=== PATIENT | male | born 1990 | race American Indian/Alaskan Native ===

== ENCOUNTER 2017-08-26 06:59 | Emergency (ER) | payer SELFPAY ==
[2017-08-26 08:00] LABS: Bilirubin,Urine NEG (Negative); Blood,Urine NEG (Negative); Color,Urine Yellow (Yellow); Mucus,Urine 2+ /HPF; Protein,Urine <15 mg/dL mg/dL (Negative); Urobilinogen,Urine < 2.0 mg/dL (<2.0)
--- NOTE | 2017-08-26 08:08 | Emergency Department Report ---
ED N/V/D HPI - General Chief complaint: Nausea/Vomiting/Diarrhea Stated complaint: ABD , N/V Time Seen by Provider: 08/26/17 07:51 Source: patient, family Mode of arrival: Ambulatory Limitations: No Limitations - History of Present Illness Initial comments: 26-year-old male past medical history none presents with complaint of nausea vomiting and abdominal pain since yesterday. Patient states that he may have gotten food poisoning by eating fast food yesterday. Patient is awake alert and oriented. Appears to be in acute distress. States that his stomach is hurting him and he feels extremely nauseous and has vomited more than 8-10 times in the last 24 hours. States that another family member who ate fast food at [employer] with him yesterday has had similar symptoms. Denies fever but does complain of chills. Denies diarrhea. Denies any recent antibiotic use or recent travel. Patient is accompanied by mother at bedside. Denies chest pain or shortness of breath. Is ambulatory without assistance. Denies dysuria or increased urinary frequency. MD complaint: nausea, vomiting, abdominal pain Onset/Timin -: days(s) Description of Vomiting: food contents, bilious Description of Diarrhea: water Location: periumbillcal, epigastric Severity: severe Pain Scale: 7 Quality: aching, sharp Consistency: intermittent Context: possible food poisoning Associated Symptoms: loss of appetite, malaise, nausea/vomiting - Related Data Previous Rx's Medication Instructions Recorded Last Taken Type Ondansetron [Zofran Odt] 4 mg PO Q8H PRN #10 tab.rapdis 08/26/17 Unknown Rx Allergies Allergy/AdvReac Type Severity Reaction Status Date / Time No Known Allergies Allergy Unverified 08/26/17 07:30 ED Review of Systems ROS: Stated complaint: ABD , N/V Other details as noted in HPI Constitutional: denies: chills, fever Eyes: denies: eye pain, eye discharge, vision change ENT: denies: ear pain, throat pain Respiratory: denies: cough, shortness of breath, wheezing Cardiovascular: denies: chest pain, palpitations Endocrine: no symptoms reported Gastrointestinal: as per HPI (since yesterday after eating fast food as per patient and his mother at bedside), abdominal pain, nausea, vomiting. denies: diarrhea Genitourinary: denies: urgency, dysuria Musculoskeletal: denies: back pain, joint swelling, arthralgia Skin: denies: rash, lesions Neurological: denies: headache, weakness, paresthesias Psychiatric: denies: anxiety, depression Hematological/Lymphatic: denies: easy bleeding, easy bruising ED Past Medical Hx - Past Medical History Previous Medical History?: No - Surgical History Past Surgical History?: No - Social History Smoking Status: Current Every Day Smoker Substance Use Type: Marijuana - Medications Home Medications: Home Medications Medication Instructions Recorded Confirmed Last Taken Type Ondansetron [Zofran Odt] 4 mg PO Q8H PRN #10 tab.rapdis 08/26/17 Unknown Rx ED Physical Exam - General Limitations: No Limitations General appearance: alert, in no apparent distress - Head Head exam: Present: atraumatic, normocephalic - Eye Eye exam: Present: normal appearance, PERRL, EOMI - ENT ENT exam: Present: mucous membranes moist - Neck Neck exam: Present: normal inspection - Respiratory Respiratory exam: Present: normal lung sounds bilaterally. Absent: respiratory distress - Cardiovascular Cardiovascular Exam: Present: regular rate, normal rhythm. Absent: systolic murmur, diastolic murmur, rubs, gallop - GI/Abdominal GI/Abdominal exam: Present: tenderness (patient has epigastric pain on palpation ), guarding (patient is guarding his abdomen on deep palpation), normal bowel sounds - Rectal Rectal exam: Present: deferred - Extremities Exam Extremities exam: Present: normal inspection - Back Exam Back exam: Present: normal inspection - Neurological Exam Neurological exam: Present: alert, oriented X3, CN II-XII intact, normal gait - Psychiatric Psychiatric exam: Present: normal affect, normal mood - Skin Skin exam: Present: warm, dry, intact, normal color. Absent: rash ED Course Vital Signs 08/26/17 08/26/17 08/26/17 07:30 09:16 10:26 Temperature 99.2 F Pulse Rate 82 84 Respiratory 18 20 18 Rate Blood Pressure 113/71 Blood Pressure 130/72 [Left] O2 Sat by Pulse 96 100 Oximetry ED Medical Decision Making - Lab Data Result diagrams: 08/26/17 08:28 08/26/17 08:28 - Medical Decision Making A/P: Acute abdominal pain, nausea and vomiting; differentials include acute gastroenteritis versus food poisoning versus pancreatitis as appendicitis 1-patient initially presented with severe abdominal pain and significant nausea. Patient given antiemetics analgesics and IV fluid resuscitation 2-upon reassessment patient's pain is significantly diminished but is still nauseous and vomiting and cannot tolerate anything by mouth. Labs are unremarkable but patient is still clinically extremely nauseous. States he feels somewhat better after initial treatment. Patient's abdomen is plow and boring machine tender to palpation. I advised him that is clinically appropriate to diminish his nausea to the point where he can tolerate by mouth fluids and has little to no abdominal pain before I can safely discharge him as I must consider other etiologies of abdominal pain and acute nausea and vomiting. Patient stated that he had to leave due to personal reasons. Patient's abdomen was still slightly tender at this time. I advised him to stay for further management and CT of his abdomen pelvis but patient declined and signed out AGAINST MEDICAL ADVICE. I advised him to return at his earliest convenience for continued abdominal pain nausea vomiting and inability to tolerate any by mouth fluid or food. Patient could not tolerate any fluid by mouth before discharge. This conversation was witnessed by medical staff and utility person Mr. Luis Hall who witnessed this conversation. Patient's mother was also present when I have this conversation with him. 3 Addenduminitially I accidentally documented a laceration repair in this patient's chart. Patient was not in ED with complaint of laceration, he presented for acute nausea vomiting and abdominal pain. Critical care attestation.: If time is entered above; I have spent that time in minutes in the direct care of this critically ill patient, excluding procedure time. ED Disposition Clinical Impression: Nausea and vomiting in adult, Left against medical advice Abdominal pain Qualifiers: Abdominal location: generalized Qualified Code(s): R10.84 - Generalized abdominal pain Disposition: LEFT AGAINST MED ADVICE Is pt being admited?: No Does the pt Need Aspirin: No Condition: Undetermined Instructions: Abdominal Pain (ED), Against Medical Advice (ED) Prescriptions: Ondansetron [Zofran Odt] 4 mg PO Q8H PRN #10 tab.rapdis PRN Reason: Nausea Referrals: [facility] [Provider Group] - 3-5 Days Forms: AMA Form, Accompanied Note Time of Disposition: 11:11
[2017-08-26] MEDS ORDERED: NACL 0.9% 1000 ML 1,000 ML IV ONE (08:19)
[2017-08-26] MEDS ORDERED: ZOFRAN IV ONE (08:19)
[2017-08-26] MEDS ORDERED: MORPHINE IV ONE (08:20)
[2017-08-26 08:42] LABS: Hematocrit 45.6 % (35.5-45.6); Hemoglobin 15.7 gm/dl (11.8-15.2); Mean Corpuscular HGB Conc 35 % (32-34); Mean Corpuscular Hemoglobin 33 pg (28-32); Mean Corpuscular Volume 94 fl (84-94); Platelet Count 202 K/mm3 (140-440); Red Blood Count 4.83 M/mm3 (3.65-5.03); Red Cell Distribution Width 13.2 % (13.2-15.2)
[2017-08-26 08:57] LABS: Alanine Aminotransferase 12 units/L (7-56); Albumin 4.3 g/dL (3.9-5); BUN/Creatinine Ratio 13; Blood Urea Nitrogen 10 mg/dL (9-20); Hemolysis Index 7; Lipase 16 units/L (13-60)
[2017-08-26 09:09] LABS: Bilirubin,Direct < 0.2 mg/dL (0-0.2)
[2017-08-26] MEDS ORDERED: PEPCID IV ONE (09:26)
[2017-08-26] MEDS ORDERED: D5NS 1,000 ML IV SCH (10:00)
[2017-08-26 10:27] VITALS: BP 130/72
[2017-08-26 12:58] LABS: Basophils % (Manual) 0 % (0.0-1.8); Eosinophils % (Manual) 0 % (0.0-4.3); Platelet Estimate Cons; RBC Morphology Normal; Total Cells Counted 100
== END 2017-08-26 11:20 | disposition left against medical advice (07) ==
LOC: ED 06:59
DX: R11.2 Nausea with vomiting, unspecified (principal); R10.9 Unspecified abdominal pain; F17.200 Nicotine dependence, unspecified, uncomplicated; F12.10 Cannabis abuse, uncomplicated
CPT/HCPCS: 36415; 80048; 80074; 81001; 82140; 82150; 83690; 85007; 85025; 96361; 96374; 96375; 99283; J2270; J2405; J7030; J7042

== ENCOUNTER 2020-06-17 07:43 | Emergency (ER) | payer OTHER ==
[2020-06-17 07:49] VITALS: BP 122/75
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
== END 2020-06-17 09:06 | disposition home or self-care (01) ==
LOC: ED 07:43
DX: S29.012A Strain of muscle and tendon of back wall of thorax, initial encounter (principal); S16.1XXA Strain of muscle, fascia and tendon at neck level, initial encounter; F17.200 Nicotine dependence, unspecified, uncomplicated; Z79.899 Other long term (current) drug therapy; V49.59XA Passenger injured in collision with other motor vehicles in traffic accident, initial encounter; Y92.410 Unspecified street and highway as the place of occurrence of the external cause; Y93.89 Activity, other specified; Y99.8 Other external cause status
CPT/HCPCS: 72040; 72070

== ENCOUNTER 2020-09-24 14:44 | Emergency (ER) | payer OTHER ==
[2020-09-24 14:53] VITALS: BP 126/78
[2020-09-24] MEDS ORDERED: LIDOCAINE (1%) 10 MG/1 ML VIAL 20 ML MDV INFILTRATI ONE (18:08)
[2020-09-24] MEDS ORDERED: TETANUS,DIPH,PERTUSS(ACELL) VACCINE 0.5 ML SYRINGE IM ONE (18:08)
--- NOTE | 2020-09-24 18:25 | Emergency Department Report ---
ED General Adult HPI - General Chief complaint: Laceration/Recheck/Suture Stated complaint: RT HAND LAC/WRIST Time Seen by Provider: 09/24/20 18:03 Source: EMS Mode of arrival: Stretcher Limitations: No Limitations - History of Present Illness Initial comments: 30-year-old -[place] male patient presents with complaints of right hand laceration occurring today at work. Patient states as he was placing a box down, there was a sharp piece of metal hanging out that swiped against his hand and cut him. He denies any numbness/tingling, difficulty moving his hand, or blood thinner use. He rates his current pain as a 5/10 in severity. No decreased range of motion of the hand per patient. He is unsure of his last tetanus vaccination Severity scale (0 -10): 0 - Related Data Previous Rx's Medication Instructions Recorded Last Taken Type Ondansetron [Zofran Odt] 4 mg PO Q8H PRN #10 tab.rapdis 08/26/17 Unknown Rx Ibuprofen [Motrin] 600 mg PO Q8H PRN #30 tablet 06/17/20 Unknown Rx methOCARBAMOL [Robaxin TAB] 750 mg PO Q8H PRN #30 tablet 06/17/20 Unknown Rx Ibuprofen [Motrin 800 MG tab] 800 mg PO Q8HR PRN #20 tablet 09/24/20 Unknown Rx Mupirocin [Bactroban 2% OINT] 1 applic TP TID 7 Days #1 tube 09/24/20 Unknown Rx cephALEXin [Keflex] 500 mg PO Q12HR 7 Days #14 cap 09/24/20 Unknown Rx Allergies Allergy/AdvReac Type Severity Reaction Status Date / Time No Known Allergies Allergy Verified 06/17/20 07:44 ED Review of Systems ROS: Stated complaint: RT HAND LAC/WRIST Other details as noted in HPI ED Past Medical Hx - Past Medical History Previous Medical History?: No - Surgical History Past Surgical History?: No - Social History Smoking Status: Current Every Day Smoker Substance Use Type: Alcohol - Medications Home Medications: Home Medications Medication Instructions Recorded Confirmed Last Taken Type Ondansetron [Zofran Odt] 4 mg PO Q8H PRN #10 tab.rapdis 08/26/17 Unknown Rx Ibuprofen [Motrin] 600 mg PO Q8H PRN #30 tablet 06/17/20 Unknown Rx methOCARBAMOL [Robaxin TAB] 750 mg PO Q8H PRN #30 tablet 06/17/20 Unknown Rx Ibuprofen [Motrin 800 MG tab] 800 mg PO Q8HR PRN #20 tablet 09/24/20 Unknown Rx Mupirocin [Bactroban 2% OINT] 1 applic TP TID 7 Days #1 tube 09/24/20 Unknown Rx cephALEXin [Keflex] 500 mg PO Q12HR 7 Days #14 cap 09/24/20 Unknown Rx ED Physical Exam - General Limitations: No Limitations General appearance: alert, in no apparent distress - Head Head exam: Present: atraumatic, normocephalic - Eye Eye exam: Present: normal appearance - Respiratory Respiratory exam: Absent: respiratory distress - Cardiovascular Cardiovascular Exam: Present: regular rate ED Course Vital Signs 09/24/20 14:52 Temperature 98.0 F Pulse Rate 78 Respiratory 18 Rate Blood Pressure 126/78 [Right] O2 Sat by Pulse 99 Oximetry - Laceration /Wound Repair Hand Wound Length (cm): 5 Irrigated w/ Saline (ccs): 40 Betadine Prep?: Yes Anesthesia: 1% Lidocaine Volume Anesthetic (ccs): 6 Suture Size/Type: 4:0, proline Number of Sutures: 12 (Continuous) Sterile Dressing Applied?: Yes Progress: Minimal bleeding occurred. Patient tolerated procedure well without any immediate complications. He has normal range of motion and perfusion of the higuera d post procedure ED Medical Decision Making - Medical Decision Making 30-year-old -[place] male patient presents with complaints of right hand laceration occurring today at work. Patient states as he was placing a box down, there was a sharp piece of metal hanging out that swiped against his hand and cut him. He denies any numbness/tingling, difficulty moving his hand, or blood thinner use. He rates his current pain as a 5/10 in severity. No decreased range of motion of the hand per patient. He is unsure of his last tetanus vaccination Laceration repaired. Patient tolerated procedure well without any immediate complications. Discussed wound care and strict return precautions in detail with patient verbalizes understanding. He is well-appearing and stable for discharge home. Patient to return to ED in 10 days for suture removal. Critical care attestation.: If time is entered above; I have spent that time in minutes in the direct care of this critically ill patient, excluding procedure time. ED Disposition Clinical Impression: Laceration of right hand Disposition: DC-01 TO HOME OR SELFCARE Is pt being admited?: No Condition: Stable Instructions: Sutured Wound Care Additional Instructions: Please return to the emergency department in 10 days for suture removal. Prescriptions: Mupirocin [Bactroban 2% OINT] 1 applic TP TID 7 Days #1 tube cephALEXin [Keflex] 500 mg PO Q12HR 7 Days #14 cap Ibuprofen [Motrin 800 MG tab] 800 mg PO Q8HR PRN #20 tablet PRN Reason: pain
== END 2020-09-24 19:18 | disposition home or self-care (01) ==
LOC: ED 14:44
DX: S61.411A Laceration without foreign body of right hand, initial encounter (principal); F17.200 Nicotine dependence, unspecified, uncomplicated; W26.8XXA Contact with other sharp object(s), not elsewhere classified, initial encounter; Y93.89 Activity, other specified; Y92.89 Other specified places as the place of occurrence of the external cause; Y99.0 Civilian activity done for income or pay
CPT/HCPCS: 90471; 90715; 99283

== ENCOUNTER 2020-10-04 12:17 | Emergency (ER) | payer SELFPAY ==
--- NOTE | 2020-10-04 12:42 | Emergency Department Report ---
- General Chief complaint: Laceration/Recheck/Suture Stated complaint: SUTURE REMOVAL Time Seen by Provider: 10/04/20 12:28 Source: patient Mode of arrival: Ambulatory Limitations: No Limitations - History of Present Illness Initial comments: 30-year-old -[place] male presents to the emergency room to have sutures removed that was placed on 09/24/2020 on his right volar wrist. Patient states that he has noticed a little bit of drainage. Patient admits he did not take his antibiotics or use the antibiotic cream that the provider placed him on. Patient denies any fever or chills. - Related Data Previous Rx's Medication Instructions Recorded Last Taken Type Ondansetron [Zofran Odt] 4 mg PO Q8H PRN #10 tab.rapdis 08/26/17 Unknown Rx Ibuprofen [Motrin] 600 mg PO Q8H PRN #30 tablet 06/17/20 Unknown Rx methOCARBAMOL [Robaxin TAB] 750 mg PO Q8H PRN #30 tablet 06/17/20 Unknown Rx Ibuprofen [Motrin 800 MG tab] 800 mg PO Q8HR PRN #20 tablet 09/24/20 Unknown Rx Mupirocin [Bactroban 2% OINT] 1 applic TP TID 7 Days #1 tube 09/24/20 Unknown Rx cephALEXin [Keflex] 500 mg PO Q12HR 7 Days #14 cap 09/24/20 Unknown Rx Allergies Allergy/AdvReac Type Severity Reaction Status Date / Time No Known Allergies Allergy Verified 10/04/20 12:24 Abscess Boil HPI - HPI Chief Complaint: Laceration/Recheck/Suture Stated Complaint: SUTURE REMOVAL Time Seen by Provider: 10/04/20 12:28 Home Medications: Previous Rx's Medication Instructions Recorded Last Taken Type Ondansetron [Zofran Odt] 4 mg PO Q8H PRN #10 tab.rapdis 08/26/17 Unknown Rx Ibuprofen [Motrin] 600 mg PO Q8H PRN #30 tablet 06/17/20 Unknown Rx methOCARBAMOL [Robaxin TAB] 750 mg PO Q8H PRN #30 tablet 06/17/20 Unknown Rx Ibuprofen [Motrin 800 MG tab] 800 mg PO Q8HR PRN #20 tablet 09/24/20 Unknown Rx Mupirocin [Bactroban 2% OINT] 1 applic TP TID 7 Days #1 tube 09/24/20 Unknown Rx cephALEXin [Keflex] 500 mg PO Q12HR 7 Days #14 cap 09/24/20 Unknown Rx Allergies/Adverse Reactions: Allergies Allergy/AdvReac Type Severity Reaction Status Date / Time No Known Allergies Allergy Verified 10/04/20 12:24 ED Review of Systems ROS: Stated complaint: SUTURE REMOVAL Other details as noted in HPI Comment: All other systems reviewed and negative ED Past Medical Hx - Social History Smoking Status: Never Smoker Substance Use Type: None - Medications Home Medications: Home Medications Medication Instructions Recorded Confirmed Last Taken Type Ondansetron [Zofran Odt] 4 mg PO Q8H PRN #10 tab.rapdis 08/26/17 Unknown Rx Ibuprofen [Motrin] 600 mg PO Q8H PRN #30 tablet 06/17/20 Unknown Rx methOCARBAMOL [Robaxin TAB] 750 mg PO Q8H PRN #30 tablet 06/17/20 Unknown Rx Ibuprofen [Motrin 800 MG tab] 800 mg PO Q8HR PRN #20 tablet 09/24/20 Unknown Rx Mupirocin [Bactroban 2% OINT] 1 applic TP TID 7 Days #1 tube 09/24/20 Unknown Rx cephALEXin [Keflex] 500 mg PO Q12HR 7 Days #14 cap 09/24/20 Unknown Rx ED Physical Exam - General Limitations: No Limitations General appearance: alert, in no apparent distress - Head Head exam: Present: atraumatic, normocephalic - ENT ENT exam: Present: normal external ear exam - Respiratory Respiratory exam: Absent: accessory muscle use - Cardiovascular Cardiovascular Exam: Present: regular rate - Neurological Exam Neurological exam: Present: alert, oriented X3, CN II-XII intact, normal gait - Psychiatric Psychiatric exam: Present: normal affect, normal mood - Skin Skin exam: Present: other (Right volar hand sutures are intact with pus coming from sutures. Tender to touch not erythematous) ED Course Vital Signs 10/04/20 12:27 Temperature 98.3 F Pulse Rate 79 Respiratory 18 Rate Blood Pressure 118/64 [Right] O2 Sat by Pulse 100 Oximetry ED Medical Decision Making - Medical Decision Making 30-year-old -[place] male presents to the emergency room to have sutures removed that was placed on 09/24/2020 on his right volar wrist. Patient states that he has noticed a little bit of drainage. Patient admits he did not take his antibiotics or use the antibiotic cream that the provider placed him on. Patient denies any fever or chills. Discussed with patient to start taking the antibiotics that was prescribed to him on 09/24/2020 for Keflex and Bactroban. Discussed with patient to return back in 3 days to have sutures removed. Patient can take ibuprofen or Tylenol for pain management. Critical care attestation.: If time is entered above; I have spent that time in minutes in the direct care of this critically ill patient, excluding procedure time. ED Disposition Clinical Impression: Laceration of right hand, Wound infection, Noncompliance with medications Disposition: TO HOME OR SELFCARE Is pt being admited?: No Does the pt Need Aspirin: No Condition: Stable Instructions: Wound Infection, [id number] Additional Instructions: Your sutures are infected secondary to noncompliance of taking your antibiotics and using your antibiotic ointment. You need to start your antibiotics today keep your wound clean and dry return back in 3 days to have wound check and possible suture removal. Tylenol or ibuprofen as needed for pain management. Keep a clean dry dressing. Referrals: [facility] [Provider Group] - 3-5 Days Forms: Work/School Release Form(ED) Time of Disposition: 12:52
== END 2020-10-04 13:06 | disposition home or self-care (01) ==
LOC: ED 12:17

== ENCOUNTER 2020-10-07 13:43 | Emergency (ER) | payer SELFPAY ==
[2020-10-07 15:25] VITALS: BP 111/68
--- NOTE | 2020-10-07 16:12 | Emergency Department Report ---
ED General Adult HPI - General Chief complaint: Laceration/Recheck/Suture Stated complaint: FOLLOW UP Time Seen by Provider: 10/07/20 16:00 Source: patient Mode of arrival: Ambulatory Limitations: No Limitations - History of Present Illness Initial comments: 30-year-old -[place] male patient presents for suture removal today. Patient was seen here 09/24/2020 in the ED and sutures were placed at that time. Patient was placed on Keflex, however he states he did not fill the prescription. When patient returned a few days ago for suture removal, the wound was noted to be infected. Patient was advised at that time by the provider to take his Keflex that was prescribed, but patient states today during his visit he could not afford the Keflex. He denies taking any antibiotics for his wound. He states there is mild pain he rates it as a 4/10 in severity. He denies any difficulty moving his right wrist, fever/chills/sweats, or swelling to the area. - Related Data Previous Rx's Medication Instructions Recorded Last Taken Type Ondansetron [Zofran Odt] 4 mg PO Q8H PRN #10 tab.rapdis 08/26/17 Unknown Rx Ibuprofen [Motrin] 600 mg PO Q8H PRN #30 tablet 06/17/20 Unknown Rx methOCARBAMOL [Robaxin TAB] 750 mg PO Q8H PRN #30 tablet 06/17/20 Unknown Rx Ibuprofen [Motrin 800 MG tab] 800 mg PO Q8HR PRN #20 tablet 09/24/20 Unknown Rx Mupirocin [Bactroban 2% OINT] 1 applic TP TID 7 Days #1 tube 10/04/20 Unknown Rx cephALEXin [Keflex] 500 mg PO Q12HR 7 Days #14 cap 10/04/20 Unknown Rx Sulfamethoxazole/Trimethoprim 1 each PO BID 10 Days #20 tablet 10/07/20 Unknown Rx [Bactrim DS TAB] Allergies Allergy/AdvReac Type Severity Reaction Status Date / Time No Known Allergies Allergy Verified 10/04/20 12:24 ED Review of Systems ROS: Stated complaint: FOLLOW UP Other details as noted in HPI Constitutional: denies: chills, fever, malaise Musculoskeletal: denies: arthralgia Skin: denies: change in color Neurological: denies: numbness, paresthesias ED Past Medical Hx - Past Medical History Previous Medical History?: No - Surgical History Past Surgical History?: No - Social History Smoking Status: Current Every Day Smoker - Medications Home Medications: Home Medications Medication Instructions Recorded Confirmed Last Taken Type Ondansetron [Zofran Odt] 4 mg PO Q8H PRN #10 tab.rapdis 08/26/17 Unknown Rx Ibuprofen [Motrin] 600 mg PO Q8H PRN #30 tablet 06/17/20 Unknown Rx methOCARBAMOL [Robaxin TAB] 750 mg PO Q8H PRN #30 tablet 06/17/20 Unknown Rx Ibuprofen [Motrin 800 MG tab] 800 mg PO Q8HR PRN #20 tablet 09/24/20 Unknown Rx Mupirocin [Bactroban 2% OINT] 1 applic TP TID 7 Days #1 tube 10/04/20 Unknown Rx cephALEXin [Keflex] 500 mg PO Q12HR 7 Days #14 cap 10/04/20 Unknown Rx Sulfamethoxazole/Trimethoprim 1 each PO BID 10 Days #20 tablet 10/07/20 Unknown Rx [Bactrim DS TAB] ED Physical Exam - General Limitations: No Limitations General appearance: alert, in no apparent distress - Head Head exam: Present: atraumatic, normocephalic - Eye Eye exam: Present: normal appearance - Respiratory Respiratory exam: Absent: respiratory distress - Cardiovascular Cardiovascular Exam: Present: regular rate, normal rhythm - Neurological Exam Neurological exam: Present: alert, oriented X3 - Psychiatric Psychiatric exam: Present: normal affect, normal mood - Skin Skin exam: Present: warm, dry, normal color, other (Laceration noted to volar aspect of right wrist with sutures in place; wound is mildly dehisced and purulent drainage is expressed with palpation; no signs of cellulitis noted; normal range of motion of the wrist, hands and fingers noted with normal perfusion). Absent: rash ED Course Vital Signs 10/07/20 15:23 Temperature 98.0 F Pulse Rate 54 L Respiratory 15 Rate Blood Pressure 111/68 O2 Sat by Pulse 100 Oximetry - Procedure Description Procedures done: 11 continuous sutures removed from wound. There is mild wound dehiscence noted with purulent drainage; patient tolerated procedure well without any immediate complication ED Medical Decision Making - Medical Decision Making 30-year-old -[place] male patient presents for suture removal today. Patient was seen here 09/24/2020 in the ED and sutures were placed at that time. Patient was placed on Keflex, however he states he did not fill the prescription. When patient returned a few days ago for suture removal, the wound was noted to be infected. Patient was advised at that time by the provider to take his Keflex that was prescribed, but patient states today during his visit he could not afford the Keflex. He denies taking any antibiotics for his wound. He states there is mild pain he rates it as a 4/10 in severity. He denies any difficulty moving his right wrist, fever/chills/sweats, or swelling to the area. Wound is infected on exam. Sutures removed. Patient placed on Bactrim due to it being free at for; to (do) pharmacy. Monse also prescribed. Discussed in great detail the importance of compliance with the antibiotics prescribed and signs and symptoms of worsening infection that should prompt immediate return to the emergency department in detail with patient verbalized understanding. His vitals are normal, he is well-appearing, he is stable for discharge home. Patient to follow-up with primary care in 3 days for wound recheck or return to the ED. Critical care attestation.: If time is entered above; I have spent that time in minutes in the direct care of this critically ill patient, excluding procedure time. ED Disposition Clinical Impression: Wound infection, Visit for suture removal Disposition: TO HOME OR SELFCARE Is pt being admited?: No Condition: Stable Instructions: Wound Infection Prescriptions: Sulfamethoxazole/Trimethoprim [Bactrim DS TAB] 1 each PO BID 10 Days #20 tablet Referrals: [facility] [Provider Group] - 3-5 Days
== END 2020-10-07 16:18 | disposition home or self-care (01) ==
LOC: ED 13:43
DX: S61.511D Laceration without foreign body of right wrist, subsequent encounter (principal); L08.9 Local infection of the skin and subcutaneous tissue, unspecified; Z79.899 Other long term (current) drug therapy; F17.200 Nicotine dependence, unspecified, uncomplicated; X58.XXXD Exposure to other specified factors, subsequent encounter
CPT/HCPCS: 99282